=== PATIENT | female | born 1945 | race Caucasian/White ===

== ENCOUNTER 2016-03-16 16:23 | Emergency (ER) | payer MEDICARE ==
[~2016-03-16] VITALS: Ht 165.1 cm; Wt 63.5 kg
[~2016-03-16 16:23] MED LIST: CEPH500C PO; CEPH500T PO; CYCL10TA2 PO; DILT180C PO; HYDR12.53; HYDR25TA9 PO; LISI10TA2 PO; LISI20TA; SULFA; TRIMETHOPRIM
--- NOTE | 2016-03-16 17:10 | PHYS DOC ---
Past Medical History Past Medical History: Hypertension Additional Past Medical Histor: SVT, cellulitis Past Surgical History: Tonsillectomy Additional Past Surgical Histo: foot surgery Alcohol Use: None Drug Use: None Adult General Chief Complaint Chief Complaint: FOOT INJURY PAIN [facility] HPI Patient is a 70 year old female presents emergency room today with a complaint of right ankle and foot injury at approximately 9:30 this morning. Patient states he was walking down steps at home when she slipped on the last 2 steps catching herself and causing her right foot to "turn inward. Patient denies falling. She denies striking her head or loss of consciousness. Patient denies any previous injuries to her ankle or foot. She denies any history of bone forming disorders. She has had her right great and second toe surgically repaired secondary to hammertoe. Review of Systems Review of Systems Constitutional: Denies fever or chills [] Eyes: Denies change in visual acuity, redness, or eye pain [] HENT: Denies nasal congestion or sore throat [] Respiratory: Denies cough or shortness of breath [] Cardiovascular: No additional information not addressed in HPI [] GI: Denies abdominal pain, nausea, vomiting, bloody stools or diarrhea [] : Denies dysuria or hematuria [] Musculoskeletal: Denies back pain or joint pain [] Integument: Denies rash or skin lesions [] Neurologic: Denies headache, focal weakness or sensory changes [] Endocrine: Denies polyuria or polydipsia [] Current Medications Current Medications Current Medications Medications (Trade) Dose Ordered Sig/Michael Start Time Stop Time Status Last Admin Dose Admin Acetaminophen/ Hydrocodone Bitart (Lortab 5/325) 1 tab 1X ONCE 03/16/16 17:15 03/16/16 17:16 DC 03/16/16 17:25 1 TAB Allergies Allergies Allergies Coded Allergies Type Severity Reaction Last Updated Verified azithromycin Allergy Intermediate 03/16/16 Yes bacitracin Allergy Intermediate 03/16/16 Yes clindamycin Allergy Intermediate 03/16/16 Yes diazepam Allergy Intermediate 03/16/16 Yes diltiazem Allergy Intermediate 03/16/16 Yes moxifloxacin Allergy Intermediate 03/16/16 Yes influenza virus vaccine, specific Adverse Reaction Intermediate Unknown Yes Physical Exam Physical Exam Constitutional: Well developed, well nourished, mild distress, non-toxic appearance. Patient is tearful. Patient states that she has a "low pain tolerance". HENT: Normocephalic, atraumatic, bilateral external ears normal, oropharynx moist, no oral exudates, nose normal. [] Eyes: PERRLA, EOMI, conjunctiva normal, no discharge. [] Neck: Normal range of motion, no tenderness, supple, no stridor. [] Cardiovascular:Heart rate regular rhythm, no murmur [] Lungs & Thorax: Bilateral breath sounds clear to auscultation [] Abdomen: Bowel sounds normal, soft, no tenderness, no masses, no pulsatile masses. [] Skin: Warm, dry, no erythema, no rash. [] Back: No tenderness, no CVA tenderness. [] Extremities: Right knee is normal in appearance. There is tenderness to palpation at the area of the neck of the fibula without any palpable defect, deformity, instability or crepitus. There is mild swelling about the lateral malleolus of the right ankle. There is tenderness to both the medial and lateral malleolus without any palpable defect, deformity, instability or crepitus. Right foot is normal in appearance. There is tenderness to palpation at the base of the fifth metatarsal as well as the base of the fourth metatarsal. There is no palpable defect, deformity, instability or crepitus. Drawer and talar tilt are stable. Foot is neurovascularly intact with capillary refill less than 2 seconds. Neurologic: Alert and oriented X 3, normal motor function, normal sensory function, no focal deficits noted. [] Psychologic: Affect normal, judgement normal, mood normal. [] Current Patient Data Vital Signs Vital Signs Date Time Temp Pulse Resp B/P Pulse Ox O2 Delivery O2 Flow Rate FiO2 03/16/16 17:25 18 100 Room Air 03/16/16 17:12 98.3 73 98.3 EKG EKG [] Radiology/Procedures Radiology/Procedures 3 views patient's right knee and right ankle performed with adequate technique. There is no evidence of acute bony injury. 3 views of patient's right foot were performed with adequate technique. There appears to be some mild cortical disruption of the base of the fifth metatarsal Course & Med Decision Making Course & Med Decision Making Pertinent Labs and Imaging studies reviewed. (See chart for details) [] Dragon Disclaimer Dragon Disclaimer This electronic medical record was generated, in whole or in part, using a voice recognition dictation system. Departure Departure Impression: Primary Impression: Metatarsal fracture Disposition: 01 HOME, SELF-CARE Condition: GOOD Referrals: ASHKAN THEODORE MD (PCP) PABLITO SCHMIDT MD Patient Instructions: Crutch Use, [id number], Metatarsal Fracture, Undisplaced Additional Instructions: 1. Take the medication as prescribed. 2. Partial weightbearing with crutches to assist with walking. 3. Review the discharge instructions provided for self care and reasons to return the emergency department. 4. Call the orthopedic doctor's office Thursday to schedule follow-up appointment. Scripts Hydrocodone/Apap 5-325 ([place] 5-325 Tablet)1 Each Tablet1 Tab PO PRN Q6HRS PRN PAIN #15 TAB Prov:ANNA PHELAN 03/16/16 ANNA PHELAN Mar 16, 2016 17:10
[2016-03-16 17:12] VITALS: BP 163/74
[2016-03-16] MEDS ORDERED: HYDROCODONE/APAP 5/325MG TABLET. PO ONE (17:15)
[2016-03-16] MEDS ORDERED: HYDR-971 PO (18:34)
--- NOTE | 2016-03-17 08:06 | RAD ---
Right foot, 3 views, 03/16/2016: History: Fall, pain There are surgical screws in the proximal phalanx of the great toe and in the distal aspect of the second metatarsal. Absence of portions of the distal ends of the proximal phalanges of the fourth and fifth toes is likely on a postsurgical basis. There are degenerative changes at scattered interphalangeal joints. A small calcific density along the dorsal aspect of the anterior portion of the talus is sclerotic and is probably due to old trauma. A faint lucency projected over the base of the fifth metatarsal on one view is likely due to an overlying soft tissue shadow. A nondisplaced fracture is less likely. No definite acute fracture or dislocation is identified. IMPRESSION: 1. Degenerative and postsurgical changes as described above. 2. Probable old tiny cortical fracture along the dorsal aspect of the talus. 3. No definite acute fracture is evident. Right ankle, 3 views, 03/16/2016: No ankle fracture or dislocation is identified. There are mild degenerative changes at the ankle joint. There is mild soft tissue swelling. IMPRESSION: No acute bony abnormality is detected. Right knee, 3 views, 03/16/2016: No fracture or dislocation is identified. No significant joint effusion is evident. There is mild subcutaneous edema.
== END 2016-03-16 18:42 | disposition home or self-care (01) ==
LOC: ER 16:23
DX: S92.351A Displaced fracture of fifth metatarsal bone, right foot, initial encounter for closed fracture (principal); I10 Essential (primary) hypertension; Z88.1 Allergy status to other antibiotic agents; Z88.8 Allergy status to other drugs, medicaments and biological substances; Z88.7 Allergy status to serum and vaccine; W01.0XXA Fall on same level from slipping, tripping and stumbling without subsequent striking against object, initial encounter; Y93.89 Activity, other specified; Y92.098 Other place in other non-institutional residence as the place of occurrence of the external cause; Y99.8 Other external cause status
CPT/HCPCS: 73562; 73610; 73630; 99284

== ENCOUNTER 2017-02-28 18:43 | Emergency (ER) | payer MEDICARE ==
[2017-02-28 19:37] LABS: ADD MAN DIFF? NO; BASO % 1 % (0-3); EOS % 3 % (0-3); HEMATOCRIT 37.1 % (36.0-47.0); HEMOGLOBIN 12.5 g/dL (12.0-15.5); LYMPH # 0.8 x10^3/uL (1.0-4.8); LYMPH % 11 % (24-48); MEAN CORPUSCULAR HEMOGLOBIN 30 pg (25-35); MEAN CORPUSCULAR HGB CONC 34 g/dL (31-37); MEAN CORPUSCULAR VOLUME 88 fL (79-100); MONO % 14 % (0-9); NEUT % 72 % (31-73); PLATELET COUNT 250 x10^3/uL (140-400); RED BLOOD COUNT 4.23 x10^6/uL (3.50-5.40); RED CELL DISTRIBUTION WIDTH 13.3 % (11.5-14.5); WHITE BLOOD COUNT 7.6 x10^3/uL (4.0-11.0)
[2017-02-28 19:47] LABS: ANION GAP 11 (6-14); BLOOD UREA NITROGEN 8 mg/dL (7-20); CALCIUM 8.5 mg/dL (8.5-10.1); CARBON DIOXIDE 27 mmol/L (21-32); CHLORIDE 102 mmol/L (98-107); CREATININE 0.8 mg/dL (0.6-1.0); GFR 71.1; GLUCOSE 105 mg/dL (70-99); POTASSIUM 3.6 mmol/L (3.5-5.1); SODIUM 140 mmol/L (136-145)
[2017-02-28 20:16] LABS: OBC FLU VALID
[2017-02-28] MEDS: ACETAMINOPHEN 325 MG TABLET. PO (20:41)
[2017-02-28] MEDS: IBUPROFEN 400 MG TABLET. PO (20:42)
== END 2017-02-28 20:46 | disposition home or self-care (01) ==
LOC: ER 18:43
DX: J09.X2 Influenza due to identified novel influenza A virus with other respiratory manifestations (principal); K08.89 Other specified disorders of teeth and supporting structures; I48.91 Unspecified atrial fibrillation; K21.9 Gastro-esophageal reflux disease without esophagitis; I10 Essential (primary) hypertension; Z87.891 Personal history of nicotine dependence; Z88.1 Allergy status to other antibiotic agents; Z88.8 Allergy status to other drugs, medicaments and biological substances; Z88.7 Allergy status to serum and vaccine
CPT/HCPCS: 36415; 71010; 80048; 85025; 87804; 87804-59; 99285-25

== ENCOUNTER → 2017-12-23 | Outpatient (CLI) | payer MEDICARE ==
[2017-02-28 20:22] VITALS: BP 151/67
[~2017-12-23] MED LIST changes: +HYDR-971 PO; +OSEL75CA PO
--- NOTE | 2017-12-23 13:15 | KCIC ---
MRI of the cervical spine without contrast 12/23/2017 CLINICAL HISTORY: Neck pain which radiates down the right shoulder. TECHNIQUE: Unenhanced T1-weighted, T2-weighted and inversion recovery sagittal and gradient echo and T2-weighted axial images of the cervical spine were obtained. FINDINGS: Mild lateral curvature of the cervical spine is seen convex to the left. There is reversal of normal cervical lordosis. Degenerative signal changes are seen involving all of he disks of the cervical spine. Loss of height of the C5-6, C6-7 and C7-T1 discs is noted. Degenerative signal changes are seen within the marrow surrounding these discs. No area of abnormal signal intensity is seen involving the cervical spinal cord. At the C2-3 disc space there is a mild generalized disc bulge. Degenerative changes are seen involving the uncovertebral and facet joints bilaterally. These findings do not result in significant central spinal canal or neural foraminal stenosis. At the C3-4 disc space there is a mild generalized disc bulge. Degenerative changes are seen involving the uncovertebral and facet joints, right greater than left. These findings when combined do not result in significant central spinal canal stenosis. Mild right neural foraminal stenosis is seen. The left neural foramen is patent. At the C4-5 disc space there is a mild generalized disc bulge. Degenerative changes are seen involving the uncovertebral and facet joints, right greater than left. These findings when combined do not result in significant central spinal canal stenosis. Mild right neural foraminal stenosis is seen. The left neural foramen is patent. At the C5-6 disc space there is a mild generalized disc bulge. Degenerative changes are seen involving the uncovertebral and facet joints, right greater than left. These findings when combined do not result in significant central spinal canal stenosis. Mild right neural foraminal stenosis is seen. The left neural foramen is patent. At the C6-7 disc space there is a mild generalized disc bulge. Degenerative changes are seen involving the uncovertebral and facet joints, left greater than right. These findings do not result in significant central spinal canal stenosis. No neural foraminal stenosis is seen. At the C7-T1 disc space there is a minimal generalized disc bulge. Degenerative changes are seen involving the facet joints, left greater than right. These findings do not result in significant central spinal canal or neural foraminal stenosis. IMPRESSION: Degenerative changes are seen throughout the cervical spine. These findings do not result in significant central spinal canal stenosis at any level. Mild right neural foraminal stenosis is seen at C3-4, C4-5 and C5-6. Electronically signed by: Chava Staley MD (12/23/2017 1:12 PM) [facility]
== END | disposition home or self-care (01) ==
LOC: KCIC MRI 11:26
PROVIDERS: ATTEND Family Medicine
DX: M48.02 Spinal stenosis, cervical region (principal); M50.30 Other cervical disc degeneration, unspecified cervical region
CPT/HCPCS: 72141

== ENCOUNTER → 2018-03-04 | Outpatient (CLI) | payer MEDICARE ==
[2017-02-28 20:22] VITALS: BP 151/67
[~2018-03-04] MED LIST changes: +ALPR0.5T6 PO; +BIOT1CAP3 PO; +BYSTOLIC2.5 MG PO; +CHOL500016 PO; +HYDR-2145 PO; +HYDR-3164 PO; -HYDR-971 PO; -HYDR12.53; +HYDR12.575; -HYDR25TA9 PO; +IOHEXOL 180 MG/ML 10 ML VIAL. ONE; +LACT1CAP19 PO; +MAGN400C PO; +methylPREDNISolone ACETATE 40 MG/ML VIAL. ONE; +methylPREDNISolone ACETATE 80 MG/ML VIAL. ONE
--- NOTE | 2018-03-04 18:56 | PAIN ---
DATE OF SERVICE: 03/04/2018 CHIEF COMPLAINT: Neck and left shoulder and upper extremity pain. HISTORY OF PRESENT ILLNESS: This is a 72-year-old female who presents with history of pain in the base of the neck, left shoulder and arm for about 8 months or so. The patient reports no specific injury or action she is aware of, but is increasing in pain, base of the neck, left shoulder, left upper extremity; worse with time, worse with changing positions, using her left upper extremity, raising her hand above her head on the left side usually any reaching for items above her head as well with the left arm, even driving the car with the left hand. The patient reports the pain is stabbing, throbbing, shooting, worse with time and during the day. Also, aching quality in the base of neck and shoulders causing headaches and along the left ear as well. The patient reports it wakes her from sleep occasionally. She has specific pillow that she has been sleeping on and pillow her neck and head better, which is not significantly helpful. The patient reports it does not affect any other modalities such as bowel or bladder control or ability to walk. The patient has had physical therapy in July of this year and also chiropractic treatment, which is ongoing. Had the latest about a month ago, which does help the pain. Both of these help but only temporarily. The patient reports she has tried Tylenol as well as Motrin, both of which helped again only to about 20%. The patient reports no specific injury or action that she is aware of. The pain just began to increase overtime. 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 The patient reports no significant pain in the right upper extremity, some in the base and neck on the right, but mostly in the left. The patient did have an MRI scan of the cervical spine showing degenerative changes throughout with mild right neuroforaminal stenosis C3-C4, C4-C5, C5-C6 and C6-C7 showing degenerative changes in the facet joints, left greater than right but without significant stenosis at any level noted. The patient rates her disability rate from 0-10. It can be anywhere from 0-10 and every category family home responsibilities, recreation, social activity, occupation, sexual behavior, self-care and life support activities, depending on what she is doing that day or if she has taken Tylenol or Motrin, which would decrease the pain. PAST MEDICAL HISTORY: Significant for hypertension, hearing loss, arthritis, cardiac ablation from atrial fibrillation. OTHER SURGERIES: Include trigger finger release and foot surgery. CURRENT MEDICATIONS: Include magnesium, vitamins, lactobacillus, biotin, lisinopril, Bystolic, alprazolam and hydrochlorothiazide. ALLERGIES: THE PATIENT IS ALLERGIC TO ZITHROMAX, BACITRACIN, CARDIZEM AND AVELOX. FAMILY HISTORY: Significant for heart disease, diabetes and high blood pressure. SOCIAL HISTORY: The patient does not drink alcohol, does not smoke, does not use any illegal, illicit or recreational drugs. She is single. Lives locally in [place], [place]. 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 REVIEW OF SYSTEMS: Positive for those items mentioned in history of present illness. All systems reviewed and otherwise negative. It is complete, full and well documented on the patient's chart. PHYSICAL EXAMINATION: VITAL SIGNS: The patient's blood pressure 157/81, pulse is 58, respirations 18, temperature is 98.2 degrees Fahrenheit. Height 5 feet 3 inches, weight 145 pounds. GENERAL: She is awake, alert, oriented, appropriate, very pleasant demeanor. HEENT: Head shows normocephalic, atraumatic. Extraocular movements are intact and symmetrical. Oral cavity: Mucous membranes moist and pink. Dentition is intact. NECK: Shows anterior throat supple without palpable lymphadenopathy noted. Swallow reflex is symmetrical. CHEST: Shows normal with inspection. Breath sounds are clear to auscultation bilaterally. HEART: Shows S1, S2 clear. No murmurs auscultated. ABDOMEN: Soft, nontender, nondistended. No palpable organomegaly is noted. No rebound or guarding demonstrated. BACK: Shows spine grossly in the midline, normal-appearing cervical lordotic curvature, thoracic kyphotic curvature and lumbar lordotic curvature. Cervical paraspinous musculature shows symmetrical on inspection, on palpation shows some moderate tenderness, especially in the left inferior aspect of the cervical paraspinous musculature and especially into the left lateral trapezius and medial trapezius. Much significant hypertrophy is noted compared to the right, very firm, tender musculature on the left side compared to the right side as well. The patient does show good rotational motion with some guarding with past 45 degrees with cervical rotations to the left, but fully past 45 degrees without significant difficulty to the right. Full extension is performed with some moderate pain reported in the base of the neck on the left side. Full forward flexion is performed without difficulty and without pain reported. EXTREMITIES: The patient's upper extremities show deep tendon reflexes at 2+ in the biceps and triceps tendons. Motor exam is approximately 4 on a scale of 5 for left jute bag clipper strength and bicep and tricep flexion and 5/5 on the right. Peripheral pulses are 2+ radial distribution. No peripheral edema is noted. Upper extremities: Shoulder shrug is strong and intact without loss of strength, but with significant pain reported with resistance on the left side. This is true with abduction of the shoulder to 90 degrees without loss of strength with resistance, but with pain reported on the left with resistance only. IMPRESSION: 1. This is a 72-year-old female with approximate 8-month history of increasing pain, base of the neck, left shoulder and upper extremity in radicular fashion. 2. MRI scan of cervical spine as noted. 3. Arthritis. 4. Hypertension. PLAN: Options were discussed with the patient including conservative medical management, physical therapy, interventional techniques. She would like to pursue interventional techniques. We discussed the cervical epidural steroid injection using description as well as anatomical models to describe the procedure. Risks were then discussed including, but not limited to bleeding, infection, possibility of epidural hematoma, subsequent neurological compromise, dural puncture, headaches, spinal cord and/or nerve damage, side effects of steroid medication and poor results regarding pain control. The patient understands and wished to proceed. The patient to return to clinic in approximately 2 weeks for followup. She was counseled to return appointment, activity level and side effects to be aware of. DIAGNOSES: Cervical radiculopathy with cervical degenerative disk disease and cervical spondylosis. PROCEDURE: Cervical epidural steroid injection, translaminar approach C6-C7 level using C-arm fluoroscopic guidance under sterile prep and drape using local anesthetic. MEDICATION INJECTED: A total of 120 mg Depo-Medrol plus 5 mL of preservative-free normal saline and 2 mL of Isovue for contrast. CONDITION AT DISCHARGE: Stable. The patient tolerated the procedure well, had no complications. CASH SILVESTRE MD DR: GRISELDA/julio césar JOB#: [id number] / [id number]
== END | disposition home or self-care (01) ==
LOC: PNCL 09:51
PROVIDERS: ATTEND Anesthesiology
DX: M50.123 Cervical disc disorder at C6-C7 level with radiculopathy (principal); M47.22 Other spondylosis with radiculopathy, cervical region; I10 Essential (primary) hypertension; M19.90 Unspecified osteoarthritis, unspecified site; I48.91 Unspecified atrial fibrillation; H91.90 Unspecified hearing loss, unspecified ear; Z98.890 Other specified postprocedural states; Z79.899 Other long term (current) drug therapy; Z88.1 Allergy status to other antibiotic agents; Z88.8 Allergy status to other drugs, medicaments and biological substances; Z83.3 Family history of diabetes mellitus; Z82.49 Family history of ischemic heart disease and other diseases of the circulatory system; Z88.5 Allergy status to narcotic agent; Z88.7 Allergy status to serum and vaccine
CPT/HCPCS: 62321; J1030; J1040; Q9965

== ENCOUNTER → 2018-03-18 | Outpatient (CLI) | payer MEDICARE ==
[2017-02-28 20:22] VITALS: BP 151/67
--- NOTE | 2018-03-18 11:33 | PAIN ---
DATE OF SERVICE: 03/18/2018 DIAGNOSES: Cervical radiculopathy, cervical degenerative disk disease cervical spondylosis. HISTORY OF PRESENT ILLNESS: The patient is a 72-year-old female who returns for followup status post cervical epidural steroid injection x 1. The patient reports about 50% improvement in the neck and left upper extremity pain. The patient reports still some pain in the left ear, back of the head with headaches and radiating to the shoulder and left arm as it was previously, but much improved. The patient reports she has been increasing her activity, doing household activities with greater ease and comfort, traveling better, driving a car with ease and comfort using her left arm and lifting items, doing household activities with much greater ease and comfort. The patient reports her pain is 8 on a scale of 10 at its worst, 5 on average and 3 at its least and is a 5 today. The patient reports aching, sharp, shooting, radiating into the left upper extremity, again into the arm and hand on left side with some tingling sensation as well, but much improved since last visit. The patient reports it still wakes her from sleep at night, but only about every 6-7 hours now and has not caused any new major issues. PHYSICAL EXAMINATION: VITAL SIGNS: Today, the patient's blood pressure is 156/79, pulse 63, respirations 18, temperature 98.2 degrees Fahrenheit, height is 5 feet 3 inches, weight is 146 pounds. GENERAL: The patient is awake, alert, oriented, appropriate, very pleasant demeanor. HEENT: Head shows normocephalic, atraumatic. Extraocular movements intact and symmetrical. Oral cavity: Mucous membranes moist and pink. Dentition is intact. NECK: Shows anterior throat supple without palpable lymphadenopathy noted. Swallow reflex is symmetrical. CHEST: Shows normal with inspection. Breath sounds clear to auscultation bilaterally. HEART: Shows S1, S2 clear. No murmurs auscultated. ABDOMEN: Soft, nontender, nondistended. No palpable organomegaly is noted. No rebound or guarding demonstrated. BACK: Shows spine grossly in the midline. Cervical paraspinous muscle shows symmetrical on inspection with normal cervical lordotic curvature, with palpation shows some moderate tenderness but only diffusely in the inferior aspect of the cervical paraspinous muscles, more on the left than the right, but without asymmetry, without trigger points or radiation. No tenderness in the trapezius on exam today. The patient has good rotational motion both laterally as well as extension and flexion without significant increase in pain. EXTREMITIES: Upper extremities show deep tendon reflexes 2+ in the biceps, triceps tendons. Motor exam is strong with approximately 4 on a scale of 5 with left melter supervisor and 5/5 on the right. Peripheral pulses 2+ in the radial distribution bilaterally. No peripheral edema is noted. Options were discussed with the patient. The patient's old chart was reviewed as her current medication regimen updated. Current review of systems updated today as well. We will proceed with a second in a series of cervical epidural steroid injection today with fluoroscopic guidance. Risks were again discussed including, but not limited to bleeding, infection, possibility of epidural hematoma, subsequent neurological compromise, dural puncture, headaches, spinal cord and/or nerve damage, side effects of steroid medication and poor results regarding pain control. The patient understands and wished to proceed. The patient to return to clinic in approximately 2 weeks for followup, was counseled on return appointment, activity level and side effects to be aware of. DIAGNOSES: Cervical radiculopathy with cervical degenerative disk disease and cervical spondylosis. PROCEDURE: Cervical epidural steroid injection, translaminar approach C6-C7 level using C-arm fluoroscopic guidance under sterile prep and drape using local anesthetic. MEDICATION INJECTED: A total of 120 mg Depo-Medrol, plus 5 mL of preservative-free normal saline and 2 mL of Isovue for contrast. CONDITION AT DISCHARGE: Stable. The patient tolerated the procedure well, had no complications. CASH SILVESTRE MD DR: GRISELDA/julio césar JOB#: [id number] / [id number]
== END | disposition home or self-care (01) ==
LOC: PNCL 09:59
PROVIDERS: ATTEND Anesthesiology
DX: M50.123 Cervical disc disorder at C6-C7 level with radiculopathy (principal); M47.22 Other spondylosis with radiculopathy, cervical region; Z88.1 Allergy status to other antibiotic agents; Z88.7 Allergy status to serum and vaccine; Z88.8 Allergy status to other drugs, medicaments and biological substances
CPT/HCPCS: 62321; J1030; J1040; Q9965